=== PATIENT | male | born 1930 | race Caucasian/White ===

== ENCOUNTER 2016-09-21 07:03 | Emergency (ER) | payer OTHER ==
[~2016-09-21] VITALS: Ht 180.3 cm; Wt 88.4 kg
[~2016-09-21 07:03] MED LIST: Colace PO; EFFEXOR XR75 MG PO; Ecotrin PO; Folvite PO; Levothroid,Synthroid PO; METHOTREXATE2.5 MG PO; Miralax, Glycolax PO; Oscal 500 w/Vitamin PO; Senokot S,Pericolace PO; Theragran PO; Tylenol Extra Streng PO; ZETIA10 MG PO; Zocor PO
[2016-09-21 07:56] LABS: HEMATOCRIT 40.9 % (38.0-50.0); MCH 29.9 PG (29.0-34.0); MCHC 32.8 G/DL (30.0-36.0); MCV 91.3 FL (86-99); MEAN PLAT.VOLUME 9.8 uM^3 (9.0-12.4); PLATELET COUNT 169 K/uL (156-360); RBC DIS.WIDTH-SD 43.5 % (39-53); RED BLOOD COUNT 4.48 M/uL (4.00-5.50); WHITE BLOOD COUNT 7.4 K/uL (4.1-10.2)
[2016-09-21 08:30] LABS: TROP-I INTERPRETATION NEGATIVE; TROPONIN-I 0.02 ng/mL (0.0-0.30)
[2016-09-21 08:43] LABS: ALKALINE PHOSPHATASE 39 IU/L (3-129); ANION GAP 8 MEQ/L (2-14); CHLORIDE 103 MEQ/L (99-109); GFR ESTIMATE (CALCULATED) 44 mL/min/; GLUCOSE 120 mg/dL (70-99); LIPASE 6 U/L (1.0-51.0); POTASSIUM 3.8 MEQ/L (3.7-5.4); SAMPLE HEMOLYSIS CHECK 0; SAMPLE ICTERIC CHECK 0; SAMPLE LIPEMIA CHECK 0; SODIUM 138 MEQ/L (136-147); TOTAL BILIRUBIN 0.5 MG/DL (0.0-1.0); UREA NITROGEN (BUN) 23 mg/dL (9-23)
[2016-09-21 10:00] VITALS: BP 145/72
== END 2016-09-21 11:44 | disposition home or self-care (01) ==
LOC: EME → EDBD 07:03 → EME 07:03
PROVIDERS: Emergency Medicine
DX: R55 Syncope and collapse (principal); R41.0 Disorientation, unspecified; R42 Dizziness and giddiness; I95.1 Orthostatic hypotension; E11.9 Type 2 diabetes mellitus without complications; I10 Essential (primary) hypertension; Z86.73 Personal history of transient ischemic attack (TIA), and cerebral infarction without residual deficits
CPT/HCPCS: 70450; 80048; 80076; 83690; 84484; 85027; 87493; 99281; 99285; J7030

== ENCOUNTER 2017-06-01 15:40 | Inpatient (IN) | payer OTHER ==
[~2017-06-01] VITALS: Ht 180.3 cm; Wt 82.2 kg
[~2017-06-01 15:40] MED LIST changes: +ECOTRIN325 MG PO; -Ecotrin PO; -Levothroid,Synthroid PO; +OS-CAL 500+D T1 EAC1 PO; -Oscal 500 w/Vitamin PO; +SYNTHROID150 MCG PO; +THERAGRAN1 TABLET PO; +TYLENOL EXTRA500 MG PO; -Theragran PO; -Tylenol Extra Streng PO; +ZOCOR40 MG PO; -Zocor PO
[2017-06-01 16:13] LABS: EOSINOPHIL (%) 1.8 % (0-5); EOSINOPHIL COUNT 0.2 K/uL (0-0.3); HEMATOCRIT 39.7 % (38.0-50.0); IMMATURE GRANULOCYTE (%) 0.4 % (0.0-0.7); INSTRUMENT ABS NEUTROPHIL CT 8.9 K/uL; LYMPHOCYTE COUNT 1.1 K/uL (1.0-2.8); MCH 29.4 PG (29.0-34.0); MCV 89.2 FL (86-99); MONOCYTE (%) 6.3 % (3-12); MONOCYTE COUNT 0.7 K/uL (0-0.8); NEUTROPHIL (%) 81.4 % (45-76); NEUTROPHIL COUNT 8.9 K/uL (1.8-6.4); PLATELET COUNT 126 K/uL (156-360); RBC DIS.WIDTH-CV 12.6 % (11.8-14.6); RBC DIS.WIDTH-SD 41.2 % (39-53); RED BLOOD COUNT 4.45 M/uL (4.00-5.50); WHITE BLOOD COUNT 10.9 K/uL (4.1-10.2)
[2017-06-01 16:21] LABS: CHLORIDE 105 mEq/L (99-109); POTASSIUM 4.4 mEq/L (3.7-5.4); SODIUM 139 mEq/L (136-147)
[2017-06-01 16:23] LABS: GLUCOSE 123 mg/dL (70-99)
[2017-06-01 16:24] LABS: ANION GAP 6 MEQ/L (2-14)
[2017-06-01 16:25] LABS: TOTAL BILIRUBIN 0.5 mg/dL (0.0-1.0)
[2017-06-01 16:26] LABS: ALKALINE PHOSPHATASE 43 IU/L (3-129)
[2017-06-01 16:27] LABS: GFR ESTIMATE (CALCULATED) 44 mL/min/ (58.99-99999)
[2017-06-01 16:28] LABS: UREA NITROGEN (BUN) 27 mg/dL (9-23)
[2017-06-01 16:34] LABS: TROP-I INTERPRETATION NEGATIVE; TROPONIN-I 0.02 ng/mL (0.0-0.30)
[2017-06-01] MEDS ORDERED: AMBIEN5 MG PO (21:33)
[2017-06-02] VITALS (8 sets, daily range): BP systolic 156–188; BP diastolic 70–81
[2017-06-02 00:42] LABS: TROP-I INTERPRETATION NEGATIVE; TROPONIN-I 0.01 ng/mL (0.0-0.30)
[2017-06-02 07:46] LABS: BASOPHIL COUNT 0.1 K/uL (0-0.1); EOSINOPHIL (%) 4.1 % (0-5); EOSINOPHIL COUNT 0.4 K/uL (0-0.3); HEMATOCRIT 40.8 % (38.0-50.0); IMMATURE GRANULOCYTE (%) 0.3 % (0.0-0.7); LYMPHOCYTE COUNT 0.8 K/uL (1.0-2.8); MCHC 32.4 G/DL (30.0-36.0); MCV 89.7 FL (86-99); MEAN PLAT.VOLUME 10.5 uM^3 (9.0-12.4); MONOCYTE COUNT 0.5 K/uL (0-0.8); NEUTROPHIL (%) 82.2 % (45-76); PLATELET COUNT 116 K/uL (156-360); RBC DIS.WIDTH-CV 12.8 % (11.8-14.6); RBC DIS.WIDTH-SD 42.1 % (39-53); RED BLOOD COUNT 4.55 M/uL (4.00-5.50); WHITE BLOOD COUNT 9.8 K/uL (4.1-10.2)
[2017-06-02 07:55] LABS: Estimated Average Glucose 137 mg/dL (70-123); HEMOGLOBIN A1c (GLYCOHEMOGLOB) 6.4 % HGB (Below 5.7)
[2017-06-02 08:06] LABS: TROP-I INTERPRETATION NEGATIVE; TROPONIN-I 0.02 ng/mL (0.0-0.30)
[2017-06-02 08:17] LABS: ALKALINE PHOSPHATASE 42 IU/L (3-129); ANION GAP 8 MEQ/L (2-14); CHLORIDE 107 MEQ/L (99-109); DIRECT BILIRUBIN 0.1 mg/dL (0.0-0.3); GFR ESTIMATE (CALCULATED) 55 mL/min/ (58.99-99999); GLUCOSE 127 mg/dL (70-99); SAMPLE HEMOLYSIS CHECK 0; SAMPLE ICTERIC CHECK 0; SAMPLE LIPEMIA CHECK 0; SODIUM 142 MEQ/L (136-147); TOTAL BILIRUBIN 0.6 MG/DL (0.0-1.0); UREA NITROGEN (BUN) 22 mg/dL (9-23)
[2017-06-02 10:43] LABS: ADD MIUA? YES; BILIRUBIN NEGATIVE; BLOOD SMALL; COLOR YELLOW ((YELLOW)); GLUCOSE (STRIP) NEGATIVE; KETONES NEGATIVE; LEUKOCYTES NEGATIVE; NITRITE NEGATIVE; PROTEIN (STRIP) NEGATIVE; SPECIFIC GRAVITY 1.014 (1.000-1.030); UROBILINOGEN 0.2 MG/DL (0.2-1.0)
[2017-06-02 10:51] LABS: FREE T3 2.7 pg/mL (2.3-4.2)
[2017-06-02 10:51] LABS: BACTERIA NONE SEEN /HPF; EPITHELIAL CELLS NONE SEEN /HPF; MUCUS TRACE /LPF; UCUL ADDED? NO; WHITE BLOOD CELLS 0-5 /HPF (0-5)
[2017-06-03 04:09] VITALS: BP 144/73
[2017-06-03 07:13] LABS: EOSINOPHIL (%) 0.1 % (0-5); IMMATURE GRANULOCYTE (%) 0.5 % (0.0-0.7); IMMATURE GRANULOCYTE COUNT 0.1 K/uL; LYMPHOCYTE COUNT 0.4 K/uL (1.0-2.8); MCHC 33.3 G/DL (30.0-36.0); MCV 89.9 FL (86-99); MEAN PLAT.VOLUME 10.6 uM^3 (9.0-12.4); MONOCYTE (%) 6.9 % (3-12); NEUTROPHIL (%) 89.4 % (45-76); PLATELET COUNT 101 K/uL (156-360); RBC DIS.WIDTH-CV 13.1 % (11.8-14.6); RED BLOOD COUNT 4.34 M/uL (4.00-5.50); WHITE BLOOD COUNT 14.5 K/uL (4.1-10.2)
[2017-06-03 07:43] LABS: CHLORIDE 104 MEQ/L (99-109); GFR ESTIMATE (CALCULATED) 51 mL/min/ (58.99-99999); GLUCOSE 119 mg/dL (70-99); POTASSIUM 3.7 MEQ/L (3.7-5.4); SODIUM 138 MEQ/L (136-147); UREA NITROGEN (BUN) 21 mg/dL (9-23)
[2017-06-03 07:44] LABS: ALKALINE PHOSPHATASE 39 IU/L (3-129); ANION GAP 8 MEQ/L (2-14); SAMPLE HEMOLYSIS CHECK 0; SAMPLE ICTERIC CHECK 0; SAMPLE LIPEMIA CHECK 0; TOTAL BILIRUBIN 0.6 MG/DL (0.0-1.0)
[2017-06-03 08:13] VITALS: BP 120/58
[2017-06-03 12:44] VITALS: BP 135/64
[2017-06-03 16:30] VITALS: BP 125/74
[2017-06-03 20:37] VITALS: BP 184/79
[2017-06-03 23:35] VITALS: BP 184/90
[2017-06-04 06:03] LABS: HEMATOCRIT 42.3 % (38.0-50.0); MCH 29.5 PG (29.0-34.0); MCHC 32.4 G/DL (30.0-36.0); MCV 91.2 FL (86-99); MEAN PLAT.VOLUME 10.7 uM^3 (9.0-12.4); PLATELET COUNT 102 K/uL (156-360); RBC DIS.WIDTH-CV 13.2 % (11.8-14.6); RBC DIS.WIDTH-SD 44.3 % (39-53); RED BLOOD COUNT 4.64 M/uL (4.00-5.50); WHITE BLOOD COUNT 8.8 K/uL (4.1-10.2)
[2017-06-04 06:09] LABS: INTER. NORMALIZED RATIO 1.1; PROTHROMBIN TIME 12.3 SEC (10.2-12.9)
[2017-06-04 06:11] LABS: PTT 28.8 SEC (25-37)
[2017-06-04 06:13] LABS: CHLORIDE 105 mEq/L (99-109); POTASSIUM 4.3 mEq/L (3.7-5.4); SODIUM 137 mEq/L (136-147)
[2017-06-04 06:16] LABS: GLUCOSE 125 mg/dL (70-99)
[2017-06-04 06:17] LABS: ANION GAP 7 MEQ/L (2-14)
[2017-06-04 06:19] LABS: ALKALINE PHOSPHATASE 50 IU/L (3-129); GFR ESTIMATE (CALCULATED) 51 mL/min/ (58.99-99999)
[2017-06-04 06:20] LABS: UREA NITROGEN (BUN) 26 mg/dL (9-23)
[2017-06-04 06:23] LABS: TOTAL BILIRUBIN 0.1 mg/dL (0.0-1.0)
[2017-06-04 08:19] VITALS: BP 140/86
[2017-06-04 09:58] LABS: C DIFF TOXIN NEGATIVE (NEGATIVE)
[2017-06-04 09:59] LABS: PROBE CHECK PASS; SPECIMEN PROCESSING CONTROL PASS
[2017-06-04 12:00] VITALS: BP 125/60
[2017-06-04 12:55] LABS: HEMATOCRIT 39.7 % (38.0-50.0); MCH 30.3 PG (29.0-34.0); MCHC 33.2 G/DL (30.0-36.0); MCV 91.3 FL (86-99); MEAN PLAT.VOLUME 11.5 uM^3 (9.0-12.4); PLATELET COUNT 109 K/uL (156-360); RBC DIS.WIDTH-CV 13.3 % (11.8-14.6); RBC DIS.WIDTH-SD 45.1 % (39-53); RED BLOOD COUNT 4.35 M/uL (4.00-5.50); WHITE BLOOD COUNT 8.6 K/uL (4.1-10.2)
[2017-06-04 13:12] LABS: INTERNAL CONTROL VALID? YES
[2017-06-04 15:49] VITALS: BP 130/66
[2017-06-04 18:18] LABS: HEMATOCRIT 40.1 % (38.0-50.0); MCV 90.3 FL (86-99)
[2017-06-04 19:47] VITALS: BP 135/60
[2017-06-04 23:39] VITALS: BP 204/82
[2017-06-05] VITALS (7 sets, daily range): BP systolic 129–146; BP diastolic 61–81
[2017-06-05 06:26] LABS: HEMATOCRIT 38.6 % (38.0-50.0); MCH 28.8 PG (29.0-34.0); MCHC 32.1 G/DL (30.0-36.0); MCV 89.6 FL (86-99); MEAN PLAT.VOLUME 11.4 uM^3 (9.0-12.4); PLATELET COUNT 126 K/uL (156-360); RBC DIS.WIDTH-CV 13.2 % (11.8-14.6); RBC DIS.WIDTH-SD 43.3 % (39-53); RED BLOOD COUNT 4.31 M/uL (4.00-5.50); WHITE BLOOD COUNT 6.5 K/uL (4.1-10.2)
[2017-06-05 06:53] LABS: ALKALINE PHOSPHATASE 34 IU/L (3-129); ANION GAP 9 MEQ/L (2-14); CHLORIDE 103 MEQ/L (99-109); GFR ESTIMATE (CALCULATED) 47 mL/min/ (58.99-99999); GLUCOSE 101 mg/dL (70-99); POTASSIUM 4.1 MEQ/L (3.7-5.4); SAMPLE HEMOLYSIS CHECK 0; SAMPLE ICTERIC CHECK 0; SAMPLE LIPEMIA CHECK 0; SODIUM 140 MEQ/L (136-147); UREA NITROGEN (BUN) 24 mg/dL (9-23)
[2017-06-05 06:56] LABS: TOTAL BILIRUBIN 0.4 MG/DL (0.0-1.0)
[2017-06-06 04:27] VITALS: BP 182/76
[2017-06-06 07:03] LABS: HEMATOCRIT 37.2 % (38.0-50.0); MCH 29.1 PG (29.0-34.0); MCHC 32.3 G/DL (30.0-36.0); MCV 90.3 FL (86-99); MEAN PLAT.VOLUME 10.3 uM^3 (9.0-12.4); PLATELET COUNT 134 K/uL (156-360); RBC DIS.WIDTH-CV 13.2 % (11.8-14.6); RBC DIS.WIDTH-SD 43.7 % (39-53); RED BLOOD COUNT 4.12 M/uL (4.00-5.50); WHITE BLOOD COUNT 6.2 K/uL (4.1-10.2)
[2017-06-06 08:36] VITALS: BP 160/71
== END 2017-06-06 16:44 | DRG 312 ==
LOC: EME 15:40 → EDOF 21:32 → 3EAST 21:32 → ENRESERV 21:33 → 3EAST 06-02 00:32
PROVIDERS: Emergency Medicine; Hospitalist; Internal Medicine; Internal Medicine Gastroenterology
DX: I95.1 Orthostatic hypotension (principal); E86.0 Dehydration; S32.010A Wedge compression fracture of first lumbar vertebra, initial encounter for closed fracture; R55 Syncope and collapse; W06.XXXA Fall from bed, initial encounter; K64.8 Other hemorrhoids; K92.1 Melena; R41.0 Disorientation, unspecified; D72.829 Elevated white blood cell count, unspecified; K52.9 Noninfective gastroenteritis and colitis, unspecified; E78.5 Hyperlipidemia, unspecified; I10 Essential (primary) hypertension; I25.10 Atherosclerotic heart disease of native coronary artery without angina pectoris; E11.9 Type 2 diabetes mellitus without complications; F41.9 Anxiety disorder, unspecified; E03.9 Hypothyroidism, unspecified; M19.90 Unspecified osteoarthritis, unspecified site; M06.9 Rheumatoid arthritis, unspecified; R29.6 Repeated falls; Y92.003 Bedroom of unspecified non-institutional (private) residence as the place of occurrence of the external cause; Z91.81 History of falling; Z85.828 Personal history of other malignant neoplasm of skin; Z86.73 Personal history of transient ischemic attack (TIA), and cerebral infarction without residual deficits; Z95.3 Presence of xenogenic heart valve
CPT/HCPCS: 70450; 70551; 71010; 72125; 72131; 74176; 78582; 80048; 80053; 80076; 81003; 82272; 82607; 82746; 83036; 84100; 84439; 84443; 84481; 84484; 85014; 85018; 85025; 85027; 85379; 85610; 85730; 86850; 86900; 86901; 87493; 87506; 88305; 93005; 93306; 93880; 94799; 97530 GP; 99281; 99285; A9540; A9567; G0378; J1644; J2270; J7030